=== PATIENT | female | born 1980 | race Native Hawaiian/Other Pacific Islander ===

== ENCOUNTER 2017-05-28 17:00 | Emergency (ER) | payer OTHER ==
[~2017-05-28] VITALS: Ht 167.6 cm; Wt 99.8 kg
[2017-05-28 18:02] LABS: PLATELET COUNT 240 K/uL (152-353)
[2017-05-28 18:16] LABS: POTASSIUM 3.9 mmol/L (3.6-5.2); SODIUM 139 mmol/L (136-145)
[2017-05-28 19:22] VITALS: BP 142/87; TEMP 98.5
== END 2017-05-28 19:24 | disposition home or self-care (01) ==
LOC: ED 17:00
DX: I83.93 Asymptomatic varicose veins of bilateral lower extremities (principal); R60.9 Edema, unspecified
CPT/HCPCS: 36415; 80053; 81000; 83880; 85027; 99283